=== PATIENT | female | born 1985 | race African-American/Black ===

== ENCOUNTER 2023-07-28 05:16 | Emergency (ER) | payer OTHER ==
[~2023-07-28] VITALS: Ht 154.9 cm; Wt 95.8 kg
[2023-07-28] MEDS ORDERED: IBUP200T46 PO (08:20)
[2023-07-28 08:44] LABS: BASO % 0.3 % (0.0-1.0); EOS # 0.2 10^3/uL (0.0-0.5); EOS % 2.4 % (0.0-3.0); HEMATOCRIT 43.2 % (36.0-47.0); HEMOGLOBIN 14.6 g/dl (12.0-15.5); LYMPH # 3.2 10^3/uL (1.5-5.0); LYMPH % 45.5 % (24.0-44.0); MEAN CORPUSCULAR HEMOGLOBIN 30.2 pg (27.0-33.0); MEAN CORPUSCULAR HGB CONC 33.8 g/dl (32.0-36.5); MEAN CORPUSCULAR VOLUME 89.4 fl (80.0-96.0); MONO # 0.4 10^3/uL (0.0-0.8); MONO % 5.8 % (2.0-8.0); NEUTROPHILS # 3.2 10^3/uL (1.5-8.5); NEUTROPHILS % 45.9 % (36.0-66.0); PLATELET COUNT, AUTOMATED 230 10^3/uL (150-450); RED BLOOD COUNT 4.83 10^6/uL (4.00-5.40)
[2023-07-28] MEDS: IBUPROFEN 600MG TAB PO ONE (09:03)
[2023-07-28 09:15] LABS: BLOOD UREA NITROGEN 10 MG/DL (9-23); CALCIUM LEVEL 9.4 MG/DL (8.5-10.1); CARBON DIOXIDE LEVEL 27 MMOL/L (20-31); CHLORIDE LEVEL 105 MMOL/L (98-107); CREATININE FOR GFR 0.66 MG/DL (0.55-1.30); GLOMERULAR FILTRATION RATE > 60.0 (>60); GLUCOSE, FASTING 110 MG/DL (60-100); POTASSIUM SERUM 4.2 MMOL/L (3.5-5.1); SODIUM LEVEL 137 MMOL/L (136-145)
[2023-07-28 09:18] LABS: HCG, SERUM QUALITATIVE NEGATIVE (NEGATIVE)
[2023-07-28 09:39] VITALS: BP 128/82; TEMP 97.8; O2SAT 95
== END 2023-07-28 09:42 | disposition home or self-care (01) ==
LOC: M ED 05:16
DX: N93.9 Abnormal uterine and vaginal bleeding, unspecified (principal); D25.9 Leiomyoma of uterus, unspecified; Z79.1 Long term (current) use of non-steroidal anti-inflammatories (NSAID)